=== PATIENT | female | born 2000 | race African-American/Black ===

== ENCOUNTER 2019-04-22 23:48 | Emergency (ER) | payer SELFPAY ==
[~2019-04-22] VITALS: Ht 165.1 cm; Wt 53.8 kg
[2019-04-23] MEDS ORDERED: IBUPROFEN 600MG TABLET PO ONE (01:30)
[2019-04-23 02:47] VITALS: BP 110/60
== END 2019-04-23 02:48 | disposition home or self-care (01) ==
LOC: ER 23:48
DX: M79.622 Pain in left upper arm (principal); M25.532 Pain in left wrist; F12.10 Cannabis abuse, uncomplicated; Y04.0XXA Assault by unarmed brawl or fight, initial encounter; Y93.89 Activity, other specified; Y92.89 Other specified places as the place of occurrence of the external cause
CPT/HCPCS: 73090; 73110; 81025; 99283